=== PATIENT | female | born 1985 ===

== ENCOUNTER 2021-03-17 08:00 | Outpatient (CLI) | payer OTHER | END 2021-03-17 09:00 | disposition home or self-care (01) | LOC: PRENATAL 08:00 | PROVIDERS: ATTEND Obstetrics & Gynecology Maternal & Fetal Medicine | DX: O35.0XX1 Maternal care for (suspected) central nervous system malformation in fetus, fetus 1 (principal); O35.3XX1 Maternal care for (suspected) damage to fetus from viral disease in mother, fetus 1; O98.512 Other viral diseases complicating pregnancy, second trimester; O09.512 Supervision of elderly primigravida, second trimester; Z36.89 Encounter for other specified antenatal screening; Z3A.25 25 weeks gestation of pregnancy ==

== ENCOUNTER 2021-06-23 10:59 | Inpatient (IN) | payer OTHER ==
[~2021-06-23] VITALS: Ht 152.4 cm; Wt 3.2 kg
[2021-06-24] MEDS ORDERED: PRENATAL VITAM1 EAC3 (08:08)
== END 2021-06-26 13:43 | disposition home or self-care (01) | DRG 783 ==
LOC: OB/GYN 10:59 → LDR 10:59 → O/R 16:16 → OB/GYN 19:47
PROVIDERS: ADMIT Obstetrics & Gynecology; ATTEND Obstetrics & Gynecology
PROC: 0UL70ZZ Occlusion of Bilateral Fallopian Tubes, Open Approach (ICD-10-PCS; 2021-06-23)
PROC: 4A0HXFZ Measurement of Products of Conception, Cardiac Rhythm, External Approach (ICD-10-PCS; 2021-06-23)
PROC: 10D00Z1 Extraction of Products of Conception, Low, Open Approach (ICD-10-PCS; principal; 2021-06-23 15:30)
DX: O98.52 Other viral diseases complicating childbirth (principal); U07.1 COVID-19; O82 Encounter for cesarean delivery without indication; Z3A.38 38 weeks gestation of pregnancy; Z37.0 Single live birth; Z30.2 Encounter for sterilization